=== PATIENT | female | born 1985 | race American Indian/Alaskan Native ===

== ENCOUNTER 2016-11-24 17:15 | Emergency (ER) | payer MEDICAID ==
[2016-11-24] MEDS ORDERED: DELTASONE PO ONE (20:40)
[2016-11-24] MEDS ORDERED: CLEOCIN PO ONE (20:40)
--- NOTE | 2016-11-24 20:41 | Emergency Department Report ---
- General Chief complaint: Skin/Abscess/Foreign Body Stated complaint: INSECT STING/LEFT THIGHT Time Seen by Provider: 11/24/16 20:11 Source: patient Mode of arrival: Ambulatory Limitations: No Limitations - History of Present Illness Initial comments: Patient reports that she was bitten by bee 2 days ago and she has redness to her left thigh. She said it started off as a small area and now it's increase in. She said areas painful and itching and pain is 8 out of 10. Denies any nausea or vomiting. Denies any coughing, wheezing, stridor or difficulty swallowing. Denies any swelling of tongue. Colitis the left side. Over-the- counter medication taken. MD complaint: rash, insect bite/sting Onset/Timin -: days(s) Tetanus Up to Date: yes Location: LLE (thigh) Severity: severe Severity scale (0 -10): 8 Quality: other (sore) Consistency: intermittent Improves with: none Worsens with: none Context: witnessed insect bite Associated symptoms: athralgias Treatments Prior to Arrival: none - Related Data Previous Rx's Medication Instructions Recorded Last Taken Type ALBUTEROL Inhaler [ProAir HFA 2 puff IH QID PRN #1 inhalation 04/10/15 Unknown Rx Inhaler] Acetaminophen/Codeine [Tylenol #3] 1 tab PO Q6H PRN #14 tab 04/10/15 Unknown Rx Azithromycin [Zithromax Z-RAVINDER] 250 mg PO DAILY #1 pack 04/10/15 Unknown Rx Prednisone [predniSONE 10 mg 10 mg PO .TAPER #1 tab.ds.pk 04/10/15 Unknown Rx (6-Day Pack, 21 Tabs)] Acetamin/Codeine 120-12Mg/5 ml 5 ml PO TID PRN #50 ml 06/08/15 Unknown Rx [Tylenol/Codeine] Amoxicillin [Amoxicillin TAB] 875 mg PO BID #20 tablet 06/08/15 Unknown Rx Prednisone [predniSONE 10 mg 10 mg PO .TAPER #1 tab.ds.pk 06/08/15 Unknown Rx (6-Day Pack, 21 Tabs)] Clindamycin [Clindamycin CAP] 300 mg PO Q8H #30 cap 11/24/16 Unknown Rx Ibuprofen [Motrin] 600 mg PO Q8H PRN #15 tablet 11/24/16 Unknown Rx predniSONE [Deltasone] 20 mg PO QDAY #5 tab 11/24/16 Unknown Rx Allergies Allergy/AdvReac Type Severity Reaction Status Date / Time amoxicillin AdvReac Rash Verified 11/24/16 17:36 Abscess Boil HPI - HPI Chief Complaint: Skin/Abscess/Foreign Body Stated Complaint: INSECT STING/LEFT THIGHT Time Seen by Provider: 11/24/16 20:11 Home Medications: Previous Rx's Medication Instructions Recorded Last Taken Type ALBUTEROL Inhaler [ProAir HFA 2 puff IH QID PRN #1 inhalation 04/10/15 Unknown Rx Inhaler] Acetaminophen/Codeine [Tylenol #3] 1 tab PO Q6H PRN #14 tab 04/10/15 Unknown Rx Azithromycin [Zithromax Z-RAVINDER] 250 mg PO DAILY #1 pack 04/10/15 Unknown Rx Prednisone [predniSONE 10 mg 10 mg PO .TAPER #1 tab.ds.pk 04/10/15 Unknown Rx (6-Day Pack, 21 Tabs)] Acetamin/Codeine 120-12Mg/5 ml 5 ml PO TID PRN #50 ml 06/08/15 Unknown Rx [Tylenol/Codeine] Amoxicillin [Amoxicillin TAB] 875 mg PO BID #20 tablet 06/08/15 Unknown Rx Prednisone [predniSONE 10 mg 10 mg PO .TAPER #1 tab.ds.pk 06/08/15 Unknown Rx (6-Day Pack, 21 Tabs)] Clindamycin [Clindamycin CAP] 300 mg PO Q8H #30 cap 11/24/16 Unknown Rx Ibuprofen [Motrin] 600 mg PO Q8H PRN #15 tablet 11/24/16 Unknown Rx predniSONE [Deltasone] 20 mg PO QDAY #5 tab 11/24/16 Unknown Rx Allergies/Adverse Reactions: Allergies Allergy/AdvReac Type Severity Reaction Status Date / Time amoxicillin AdvReac Rash Verified 11/24/16 17:36 ED Review of Systems ROS: Stated complaint: INSECT STING/LEFT THIGHT Other details as noted in HPI Comment: All other systems reviewed and negative Constitutional: denies: chills ENT: denies: throat pain, congestion Respiratory: no symptoms reported Cardiovascular: denies: chest pain, palpitations, edema, syncope Gastrointestinal: denies: abdominal pain, nausea, vomiting Musculoskeletal: arthralgia. denies: back pain, joint swelling, myalgia Skin: rash, pruritus Neurological: denies: headache, numbness, paresthesias, confusion, abnormal gait , vertigo ED Past Medical Hx - Past Medical History Previous Medical History?: No - Surgical History Past Surgical History?: No - Family History Family history: hypertension - Social History Smoking Status: Never Smoker Substance Use Type: None Other Social History: SINGLE - Medications Home Medications: Home Medications Medication Instructions Recorded Confirmed Last Taken Type ALBUTEROL Inhaler [ProAir HFA 2 puff IH QID PRN #1 inhalation 04/10/15 Unknown Rx Inhaler] Acetaminophen/Codeine [Tylenol #3] 1 tab PO Q6H PRN #14 tab 04/10/15 Unknown Rx Azithromycin [Zithromax Z-RAVINDER] 250 mg PO DAILY #1 pack 04/10/15 Unknown Rx Prednisone [predniSONE 10 mg 10 mg PO .TAPER #1 tab.ds.pk 04/10/15 Unknown Rx (6-Day Pack, 21 Tabs)] Acetamin/Codeine 120-12Mg/5 ml 5 ml PO TID PRN #50 ml 06/08/15 Unknown Rx [Tylenol/Codeine] Amoxicillin [Amoxicillin TAB] 875 mg PO BID #20 tablet 06/08/15 Unknown Rx Prednisone [predniSONE 10 mg 10 mg PO .TAPER #1 tab.ds.pk 06/08/15 Unknown Rx (6-Day Pack, 21 Tabs)] Clindamycin [Clindamycin CAP] 300 mg PO Q8H #30 cap 11/24/16 Unknown Rx Ibuprofen [Motrin] 600 mg PO Q8H PRN #15 tablet 11/24/16 Unknown Rx predniSONE [Deltasone] 20 mg PO QDAY #5 tab 11/24/16 Unknown Rx ED Physical Exam - General Limitations: No Limitations General appearance: alert, in no apparent distress - Head Head exam: Present: atraumatic, normocephalic, normal inspection - Eye Eye exam: Present: normal appearance, PERRL, EOMI. Absent: conjunctival injection, periorbital swelling, periorbital tenderness Pupils: Present: normal accommodation - ENT ENT exam: Present: normal exam, normal orophraynx, mucous membranes moist - Expanded ENT Exam Expanded Ear exam: Present: normal external inspection Mouth exam: Present: normal external inspection, tongue normal. Absent: drooling, trismus, muffled voice Teeth exam: Present: normal inspection Throat exam: Positive: normal inspection. Negative: tonsillar erythema, tonsillomegaly, tonsillar exudate, R peritonsillar mass, L peritonsillar mass - Neck Neck exam: Present: normal inspection, full ROM. Absent: tenderness, meningismus, lymphadenopathy - Expanded Neck Exam Expanded Neck exam: Absent: tenderness, midline deformity, anterior neck swelling, tracheal deviation - Respiratory Respiratory exam: Present: normal lung sounds bilaterally. Absent: respiratory distress, wheezes, rales, rhonchi, stridor, chest wall tenderness - Cardiovascular Cardiovascular Exam: Present: regular rate, normal rhythm, normal heart sounds - GI/Abdominal GI/Abdominal exam: Present: soft, normal bowel sounds. Absent: distended, tenderness, guarding, rebound, rigid - Extremities Exam Extremities exam: Present: normal inspection, full ROM, normal capillary refill. Absent: tenderness, pedal edema, joint swelling, calf tenderness - Back Exam Back exam: Present: normal inspection, full ROM - Neurological Exam Neurological exam: Present: alert, oriented X3, normal gait, reflexes normal. Absent: motor sensory deficit - Psychiatric Psychiatric exam: Present: normal affect, normal mood - Skin Skin exam: Present: warm, dry, rash, erythema - Expanded Skin Exam Expanded Type of lesion: Present: rash, bite/sting Distribution of rash: LLE (left mid thigh. Erythema area with mild swelling small opening to Center without any stinger. To touch and tender to palpate) Description of rash: Present: size (4 x 2 cm), tenderness, erythematous, swelling ED Course Vital Signs 11/24/16 11/24/16 17:36 20:59 Temperature 98.3 F Pulse Rate 88 Respiratory 16 Rate Blood Pressure 145/102 Blood Pressure 140/98 [Left] O2 Sat by Pulse 100 Oximetry - Reevaluation(s) Reevaluation #1: 11/24/16 20:59 received 60 MG BY MOUTH AND Clinda 300 MG BY MOUTH AND EMERGENCY ROOM TO TREAT CELLULITIS AND INSECT BITE 11/24/16 21:05 ED Medical Decision Making - Medical Decision Making MDM: Assessment/plan Ed course: status post insect bite with cellulitic area to the left thigh she says is increasing in size. Patient reports that tetanus shot is up-to-date.. Pt also with blood pressure of 145/102 which was retaken manually and at 140/ 98. HASa family history of high blood pressure but denies any personal history of high blood pressure. She has no respiratory symptoms from bee sting. He was treated in emergency room an antibiotic in prednisone. Explained to patient that she needs to take her blood pressure on a daily basis and keep a record and follow up with her primary care physician which she does have one. Take lots of primary care visit to monitor blood pressure. Patient given on DASH diet and low-sodium diet. Patient says she has no medical problems. Diagnosis/laB: No Need for laboratory or diagnostic test Diagnosis: Insect bite, cellulitis left thigh, throughout her left thigh, elevated blood pressure region without diagnosis of high blood pressure Medication: Prednisone 60 mg given along with clindamycin 300 mg by mouth and emergency room patient discharged home with prescription for clindamycin, Motrin and prednisone. Patient for his undescended discharge instruction and discharged home in stable condition. Critical care attestation.: If time is entered above; I have spent that time in minutes in the direct care of this critically ill patient, excluding procedure time. ED Disposition Clinical Impression: Cellulitis of left thigh, Elevated blood pressure reading in office without diagnosis of hypertension, Arthralgia of left thigh Insect bite Qualifiers: Encounter type: initial encounter Qualified Code(s): W57.XXXA - Bitten or stung by nonvenomous insect and other nonvenomous arthropods, initial encounter Disposition: DC-01 TO HOME OR SELFCARE Is pt being admited?: No Does the pt Need Aspirin: No Condition: Stable Instructions: Arthralgia (ED), Cellulitis (ED), Insect Bite or Sting (ED) Additional Instructions: followed for your primary care physician in 2 days if he cannot get appointment with primary care physician he can return to the emergency room for follow-up visit cellulitis Take antibiotic as prescribed. Increase your fluid intake Keep affected area clean and dry Prescriptions: Clindamycin [Clindamycin CAP] 300 mg PO Q8H #30 cap Ibuprofen [Motrin] 600 mg PO Q8H PRN #15 tablet PRN Reason: Pain predniSONE [Deltasone] 20 mg PO QDAY #5 tab Referrals: PRIMARY CAREMD [Primary Care Provider] - 11/26/16 Forms: Work/School Release Form(ED)
[2016-11-24 21:22] VITALS: BP 147/101
== END 2016-11-24 21:22 | disposition home or self-care (01) ==
LOC: ED 17:15
DX: L03.116 Cellulitis of left lower limb (principal); R03.0 Elevated blood-pressure reading, without diagnosis of hypertension; M79.652 Pain in left thigh; Z88.1 Allergy status to other antibiotic agents; W57.XXXA Bitten or stung by nonvenomous insect and other nonvenomous arthropods, initial encounter; Y93.89 Activity, other specified; Y99.9 Unspecified external cause status; Y92.89 Other specified places as the place of occurrence of the external cause
CPT/HCPCS: 99282; J7512